=== PATIENT | female | born 1950 | race Caucasian/White ===

== ENCOUNTER → 2020-12-11 14:26 | Outpatient (CLI) | payer MEDICARE, SELFPAY ==
--- NOTE | ~2020-12-11 | XR_ITS ---
EXAMINATION: XR finger 5th LT min 2V DATE: 12/11/2020 14:53 INDICATION: Pain at the left fifth digit TECHNIQUE: Dorsal palmar, lateral and 2 oblique views of the left fifth digit were obtained COMPARISON: None FINDINGS: Alignment is normal. No fracture. Polyarticular osteoarthritis, mild at the fifth proximal interphala ngeal, midcarpal and first carpal metacarpal joints and moderate severity at the triscaphe, fourth pr oximal interphalangeal and fifth distal interphalangeal joints. No erosions to suggest an inflammator y arthritis. Diffuse osteopenia. IMPRESSION: 1. Mild to moderate polyarticular osteoarthritis in the visualized left hand including the fifth digi t. Reviewed, dictated and finalized at location B. IMPRESSION: 1. Mild to moderate polyarticular osteoarthritis in the visualized left hand in cluding the fifth digit.
--- NOTE | ~2020-12-11 | XR_ITS ---
XR lumbar spine 6V w bending DATE: 12/11/2020 14:53 INDICATION: Low back pain TECHNIQUE: AP, lateral, bilateral oblique views and coned lateral lumbosacral view. Flexion and exten brett lateral views. COMPARISON: None FINDINGS: Diffuse osteopenia. Normal alignment of the lumbar spine. No fracture or bone destruction or spondylolisthesis. No spondy lolisthesis is evident. There is degenerative change at the apophyseal joints in particular L4-5 and especially L5-S1. There is multilevel degenerative disc disease, most prominent at L4-5, moderate at the remaining lumb ar interspaces. The sacroiliac joints appear normal. Postoperative changes of the left upper quadrant. IMPRESSION: Diffuse osteopenia Multilevel degenerative disc disease, greatest at L4-5 Reviewed, dictated and finalized at location A.
== END ==
PROVIDERS: PCP Internal Medicine; Visit Provider Internal Medicine
DX: D50.9 Iron deficiency anemia, unspecified (principal); M54.5 Low back pain; M85.88 Other specified disorders of bone density and structure, other site; M19.042 Primary osteoarthritis, left hand
CPT/HCPCS: 72114; 73140

== ENCOUNTER 2020-12-13 19:19 | Emergency (ER) | payer MEDICARE, MEDICAID, SELFPAY ==
[2020-12-13 19:30] VITALS: BP 145/95; PULSE 88; RESP 16; TEMP 37; O2SAT 98
--- NOTE | 2020-12-13 19:51 | ED.EXTPRO ---
HPI - Extremity Problem General Chief complaint: Extremity Problem,Nontraumatic Stated complaint: MUSCLE CRAMPS Time Seen by Provider: 12/13/20 19:26 Source: patient Mode of arrival: ambulatory Limitations: no limitations History of Present Illness HPI Narrative: Patient is a 70-year-old female who presents complaining of cramping to bilateral lower extremities. Patient reports a history of low potassium and related muscle cramping. Patient reports potassium was checked last week and was well, reports recheck next week but she does not have results. She reports increasing cramps and weakness in the same. She denies taking any [id number] medications for pain at this time. She reports she takes 60 meq potassium daily. MD Complaint: extremity pain Related Data Home Medications Medication Instructions Recorded Confirmed estradiol g VAGINAL DAILY gm 01/23/20 12/11/20 Allergies Allergy/AdvReac Type Severity Reaction Status Date / Time rosuvastatin AdvReac Intermediate Abdominal Verified 12/13/20 19:43 Pain Review of Systems Review of Systems: Narrative: CONSTITUTIONAL: Denies fever, chills, or sweats. EYES: Denies visual changes, redness, or discharge. ENT: Denies rhinorrhea, congestion, sore throat, or otalgia. CARDIOVASCULAR: Denies chest pain, palpitations, or edema. RESPIRATORY: Denies cough or dyspnea. GASTROINTESTINAL: Denies abdominal pain, nausea, vomiting, or diarrhea. GENITOURINARY: Denies dysuria or hematuria. SKIN: Denies rash or itching. MUSCULOSKELETAL: Muscle cramps to bilateral lower extremities NEUROLOGIC: Denies headache, numbness, dizziness, or weakness. PSYCHIATRIC: Denies anxiety or depression. [facility] Past Medical History Medical History Obstructive sleep apnea Patient not using CPAP since 2009 Secondary hyperparathyroidism Family History Family History (Updated 12/13/20 @ 19:54 by GRACIA Holloway) Other No significant family history Social History Social History (Updated 12/13/20 @ 19:54 by GRACIA Holloway) Smoking status: Never smoker Second hand tobacco smoke exposure: No Alcohol intake: never Substance use: never Living arrangements: with family Comments At the time of signature, I have reviewed and agree with nursing past medical, surgical, social, and family history unless otherwise noted. Please see nursing chart for further information. There is no relevant family history pertinent to the presenting complaint. Exam Narrative: Exam Narrative: GENERAL: Well-appearing, well-nourished, and in no acute distress. HEAD: Normocephalic, atraumatic. EYES: EOMI. No redness or drainage. ENT: Mucous membranes pink and moist. CHEST: No respiratory distress. Clear to auscultation. HEART: Regular rate and rhythm. No murmur appreciated. Normal peripheral pulses. GI: Soft, nontender without rebound, or guarding. EXTREMITIES: Normal range of motion. No edema. SKIN: Warm, dry, no rash. NEURO: No focal deficits. Alert and oriented x3. Gait steady. PSYCH: Normal affect. No signs of depression or anxiety. Course Vital Signs Vital signs: Vital Signs Temperature 37.0 C 12/13/20 19:30 Pulse Rate 88 12/13/20 19:30 Respiratory Rate 16 12/13/20 19:30 Blood Pressure 145/95 H 12/13/20 19:30 Pulse Oximetry 98 12/13/20 19:30 Temperature 37.0 C 12/13/20 19:30 Pulse Rate 88 12/13/20 19:30 Respiratory Rate 16 12/13/20 19:30 Blood Pressure 145/95 H 12/13/20 19:30 Pulse Oximetry 98 12/13/20 19:30 Reviewed-patient is informed that they may have pre-hypertension or hypertension based on a blood pressure reading. I recommend the patient call the primary care provider listed on their discharge instructions or a physician of their choice this week to arrange follow-up for further evaluation of possible pre-hypertension or hypertension. MDM - Extremity (Nontraumatic) Lab Data
[2020-12-13 19:56] LABS: Basophils Percent Auto 0.4 % (0.2-1.2); Eosinophils Percent Auto 0.3 % (0-4.4); Hemoglobin 11.8 g/dL (12.0-15.0); Immature Granulocyte Absolute 0.02 K/mm3 (0.00-0.031); Immature Granulocyte Percent A 0.3 % (0-0.5); Lymphocytes Absolute Auto 1.67 K/mm3 (0.9-3.2); Lymphocytes Percent Auto 22.3 % (18.3-44.2); Mean Corpuscular HGB Conc 30.3 g/dl (32-36); Mean Corpuscular Hemoglobin 24.4 pg (26-34); Mean Corpuscular Volume 80.7 fl (80-100); Mean Platelet Volume 11.3 fl (7.4-10.4); Monocytes Absolute Auto 0.5 K/mm3 (0.1-0.6); Monocytes Percent Auto 6.7 % (2.6-8.5); Neutrophils Absolute Auto 5.3 K/mm3 (1.3-6.7); Platelet Count Result 310 k/mm3 (150-375); Red Blood Count 4.83 M/mm3 (4.2-5.4); Red Cell Distribution Width 16.6 % (11.5-14.5); White Blood Count 7.5 K/mm3 (4.5-10.0)
[2020-12-13 20:08] LABS: Alanine Aminotransferase 17 U/L (4-35); Albumin Level 3.6 g/dL (3.5-5.1); Alkaline Phosphatase 98 U/L (38-126); Anion Gap 2 mmol/L (8-16); Aspartate Amino Transferase 38 U/L (14-36); Bilirubin,Total 0.1 mg/dL (0.2-1.3); Blood Urea Nitrogen 7 mg/dL (7-17); Calcium 8.6 mg/dL (8.4-10.2); Carbon Dioxide 28 mmol/L (22-30); Chloride 107 mmol/L (98-107); Estimated CRCL calculation 60 ml/min; Estimated Glomerular Filt Rate > 60; Glucose 88 mg/dL (65-105); Potassium 4.2 mmol/L (3.4-5.0); Sodium 137 mmol/L (137-145)
== END 2020-12-13 20:45 | disposition home or self-care (01) ==
PROVIDERS: Emergency Provider Nurse Practitioner; PCP Internal Medicine
DX: R25.2 Cramp and spasm (principal); G47.33 Obstructive sleep apnea (adult) (pediatric); N25.81 Secondary hyperparathyroidism of renal origin; R03.0 Elevated blood-pressure reading, without diagnosis of hypertension
CPT/HCPCS: 36415; 80053; 85025; 99283

== ENCOUNTER 2021-02-12 14:23 | Outpatient (CLI) | payer MEDICARE, MEDICAID, SELFPAY ==
--- NOTE | 2021-02-12 14:33 | ECG_ITS ---
Measurements Intervals [place] Rate: 82 P: 55 NM: 152 QRS: -8 QRSD: 109 T: 69 QT: 414 QTc: 484 Interpretive Statements SINUS RHYTHM ATRIAL AND VENTRICULAR PREMATURE COMPLEXES DELAYED PRECORDIAL R/S TRANSITION BORDERLINE ST-T WAVE ABNORMALITY- HIGH LATERAL LEADS ABNORMAL ECG Electronically Signed On 02-12-2021 14:59:13 CDT by Lai Martinez D.O.
== END 2021-02-12 14:24 | disposition home or self-care (01) ==
PROVIDERS: PCP Internal Medicine; Visit Provider Internal Medicine
DX: I10 Essential (primary) hypertension (principal); I49.9 Cardiac arrhythmia, unspecified; R94.31 Abnormal electrocardiogram [ECG] [EKG]
CPT/HCPCS: 93005

== ENCOUNTER → 2021-04-10 10:32 | Outpatient (CLI) | payer MEDICARE, SELFPAY ==
--- NOTE | ~2021-04-10 | DEXA_ITS ---
Bone Density Report Name: Henrietta Burris Age: 70 Sex: Female Ethnicity: White Date of : 1950 Indication: postmenopausal; screening for osteoporosis; height loss; prior fracture; hysterectomy; Referring Provider: MARIS HAY Study: Bone densitometry was performed. Exam Date: April 10, 2021 Accession number: [id number] Bone Density: Region BMD T-score Z-score Classification AP Spine (L1-L4) 0.951 -0.9 1.1 Normal Femoral Neck (Left) 0.622 -2.0 -0.3 Osteopenia Total Hip (Left) 0.670 -2.2 -0.8 Osteopenia Femoral Neck (Right) 0.570 -2.5 -0.8 Osteoporosis Total Hip (Right) 0.625 -2.6 -1.2 Osteoporosis Total Hip Mean 0.648 -2.4 -1.0 Osteopenia World Health Organization criteria for BMD impression classify patients as: Normal (T-score at or above -1.0), Osteopenia (T-score between -1.0 and -2.5), or Osteoporosis (T-score at or below -2.5). 10-year Fracture Risk: FRAX not reported because: Some T-score for Spine Total or Hip Total or Femoral Neck at or below -2.5 Clinical Information Provided by Patient: Has had a low trauma fracture Has used the following medications: Vitamin D, Calcium Has the following medical conditions: Hysterectomy Patient maximum height was 63.5 Menopause Age: 38 No regular weight bearing exercise Drinks caffeinated beverages Onset of menses at age 14 Number of children 2 Impression: The patient has established osteoporosis, based on the Right Total Hip T-score and the existence of a prior fracture. The patient has risk factors, including: previous fracture. Discussion: HIGH RISK OF FRACTURE. BONE DENSITY IS UNDESIRABLY LOW AT ONE OR MORE SKELETAL SITES, CONSISTENT WITH POSTMENOPAUSAL OSTEOPOROSIS. This patient's lowest T-score, in a patient who has previously fractured, meets the World Health Organization's (WHO) criteria for severe osteoporosis. In untreated patients, the risk of osteoporotic fracture increases approximately two-fold for each 1.0 SD decrease in T-score. Low bone density is not the only risk factor for fracture; also consider factors such as patient's age, frailty or poor health, risk of falling, risk of injury, previous osteoporotic fracture, family history of osteoporosis, cigarette smoking, low body weight, etc. Not everyone with low bone mineral density has osteoporosis; osteomalacia and other metabolic bone disorders should also be considered. Patients who have osteoporosis should be evaluated for specific diseases and conditions (secondary causes) that may cause or contribute to bone loss. The [place] [employer]ocr[employer] (AACE) and National Osteoporosis Foundation (NOF) recommend pharmacologic intervention for all postmenopausal women whose T-score is in this range. The patient should follow a healthful lifestyle (good nutrition with adequate calciu
== END ==
PROVIDERS: PCP Internal Medicine; Visit Provider Internal Medicine
DX: Z78.0 Asymptomatic menopausal state (principal); M85.852 Other specified disorders of bone density and structure, left thigh; M85.851 Other specified disorders of bone density and structure, right thigh; M81.0 Age-related osteoporosis without current pathological fracture
CPT/HCPCS: 77080

== ENCOUNTER → 2021-07-04 03:32 | Outpatient (CLI) | payer MEDICARE, MEDICAID, SELFPAY ==
[2021-07-04 17:41] LABS: SARS-CoV-2 RNA PCR Negative
== END ==
PROVIDERS: PCP Internal Medicine; Visit Provider Internal Medicine
DX: R68.89 Other general symptoms and signs (principal); Z20.822 Contact with and (suspected) exposure to COVID-19
CPT/HCPCS: C9803; U0003; U0005

== ENCOUNTER → 2021-07-22 10:12 | Outpatient (CLI) | payer MEDICARE, MEDICAID, SELFPAY ==
--- NOTE | ~2021-07-22 | XR_ITS ---
EXAMINATION: XR ankle LT min 3V EXAM DATE: 07/22/2021 10:39 INDICATION: Pain in left ankle and joints of left foot, Other Chronic pain. TECHNIQUE: Left ankle frontal, lateral and oblique projections obtained and reviewed. There is no pr ior study for comparison. FINDINGS: The left ankle mortise appears intact. Small inferior calcaneal spur. There are no acute fractures or dislocations identified. There is no subcutaneous gas. The soft tissue is unremarkabl e. There are no radiopaque foreign bodies. IMPRESSION: Small left calcaneal spur. Reviewed, dictated and finalized at location B. IMPRESSION: Small left calcaneal spur.
== END ==
PROVIDERS: PCP Internal Medicine; Visit Provider Internal Medicine
DX: M77.32 Calcaneal spur, left foot (principal)
CPT/HCPCS: 73610

== ENCOUNTER → 2022-03-20 02:27 | Outpatient (CLI) | payer MEDICARE, MEDICAID, SELFPAY ==
[2022-03-20 14:22] LABS: SARS-CoV-2 RNA PCR Negative
== END ==
PROVIDERS: PCP Internal Medicine; Visit Provider Internal Medicine
DX: R68.89 Other general symptoms and signs (principal); Z20.822 Contact with and (suspected) exposure to COVID-19
CPT/HCPCS: C9803; U0003; U0005